=== PATIENT | male | born 1930 | race Caucasian/White ===

== ENCOUNTER 2017-10-23 08:28 | Emergency (ER) | payer OTHER ==
[~2017-10-23] VITALS: Ht 170.2 cm; Wt 66.7 kg
[2017-10-23] MEDS ORDERED: COZAAR50 MG (08:57)
== END 2017-10-23 11:20 | disposition home or self-care (01) ==
LOC: ER 08:28
DX: S01.81XA Laceration without foreign body of other part of head, initial encounter (principal); S01.512A Laceration without foreign body of oral cavity, initial encounter; W10.8XXA Fall (on) (from) other stairs and steps, initial encounter; Y93.89 Activity, other specified; Y92.098 Other place in other non-institutional residence as the place of occurrence of the external cause; Y99.8 Other external cause status